=== PATIENT | female | born 1990 | race Caucasian/White ===

== ENCOUNTER 2021-06-13 14:50 | Inpatient (IN) | payer OTHER, SELFPAY ==
[2021-06-13] VITALS (21 sets, daily range): BP systolic 115–145; BP diastolic 69–99; PULSE 64–139; TEMP 36.5–36.8; O2SAT 97–98; BMI 25.0
[2021-06-13 14:58] LABS: Creatinine, Urine (random) < 13.00 mg/dL (NO RANGE EST.); Protein, Urine (Random) < 6.0 mg/dL (<11.9)
[2021-06-13] MEDS: 0.9% Saline Lock 10 ML Syringe IV (15:30)
[2021-06-13 15:57] LABS: Hematocrit 44.2 % (37-47); Hemoglobin 14.7 g/dL (12.0-15.0); Mean Corp Hgb Conc 33.3 g/dL (32-36); Mean Corpuscular Hgb 30.2 pg (27.0-32.0); Mean Corpuscular Volume 90.9 fL (81-99); Mean Platelet Vol. 9.4 fl (6.2-12.0); Platelet Count 222 K/mm3 (150-450); RBC Distribution Width CV 13.2 % (11.6-14.6); RBC Distribution Width SD 43.8 fl (35.1-43.9); Red Blood Count 4.86 M/mm3 (4.2-5.4); White Blood Count 9.1 K/mm3 (4.4-11.0)
[2021-06-13 16:20] LABS: ALB/GLOB Ratio 0.6 RATIO (0.9-2.4); AST(SGOT) 34 U/L (15-37); Alanine Aminotransfer ALT/SGPT 23 U/L (13-56); Albumin, Serum 2.7 g/dL (3.2-5.0); Alkaline Phosphatase 166 U/L (45-117); Anion Gap 10 (5-15); BUN 7 mg/dL (7-18); BUN/Creat Ratio 11.3 RATIO (10-20); Calcium,Total 9.3 mg/dL (8.5-10.1); Chloride 105 mmol/L (98-107); Creatinine, Serum 0.62 mg/dL (0.55-1.02); EST Glomerular Filtration Rate 121 mL/min (>60); Est Glom Filt Rate - Afr Amer 146 mL/min (>60); Estimated Creatinine Clearance 135.06 ml/min; Globulin 4.5 g/dL (2.2-4.2); Glucose 79 mg/dL (74-106); Potassium 3.9 mmol/L (3.5-5.1); Protein, Total 7.2 g/dL (6.4-8.2); Sodium Level 138 mmol/L (136-145); Uric Acid 5.1 mg/dL (2.6-6.0)
--- NOTE | 2021-06-13 16:57 | HP.PCM.OB_ITS ---
HPI - General General Date of Admission: 06/13/21 HPI Narrative GABRIEL GUERRA, is a 30 F who presents at 38w3d by LMP. . uncomplicated till todays visit. BP elevated in office. Sent to labor and delivery for evaluation. BP remained elevated upon triage evaluation and cerv ical exam changed from 3cm to 5cm dilation. No signs of preeclampsia or other complaints. Maternal Data Information LIN Calculator Estimated Delivery Date Method Current WG Current Estimate 06/24/21 Manual 38w 3d PFSH PFSH Home Medications aspirin [Aspir-81] 81 mg PO DAILY 06/13/21 [History Last Taken 06/12/21] calcium 500 mg PO DAILY 06/13/21 [History Last Taken 06/12/21] cholecalciferol (vitamin D3) [Vitamin D3] 50 mcg PO DAILY 06/13/21 [History Last Taken 06/12/21] [id number] [] 1 tab PO DAILY 06/13/21 [History Last Taken 06/12/21] Allergy/AdvReac Type Severity Reaction Status Date / Time No Known Allergies Allergy Verified 06/13/21 15:07 Social History Smoking Status: Never smoker History Elective abortions Hx Para 3 Spontaneous abortions Hx # Term Pregnancies Ectopic pregnancies Hx # Pregnancies Multiple births # of living children NST FHR Rate Baby A Baseline: 155 Variability:: Moderate Accelerations:: 15 x 15 Decelerations:: None FHR Category:: Category I Uterine Activity:: Irregular, every 2-3 ROS Constitutional Constitutional: Reports systems reviewed and no addt'l complaints, except as documented; Denies headache(s) Eyes Eyes: Denies acute decrease in peripheral vision, blurry vision or change in vision ENT HEENT: Reports systems reviewed and no addt'l complaints, except as documented Cardiovascular Cardiovascular: Denies chest pain or dizziness Respiratory/Chest Respiratory/Chest: Denies cough, dyspnea, dyspnea on exertion, shortness of breath at rest or shortness of breath with exertion Gastrointestinal Gastrointestinal: Denies abdominal pain, diarrhea, nausea or vomiting Genitourinary Genitourinary: Denies abdominal discomfort Musculoskeletal Musculoskeletal: Denies limited range of motion Integumentary Integumentary: Reports systems reviewed and no addt'l complaints, except as documented Neurologic Neurologic: Reports systems reviewed and no addt'l complaints, except as documented Psychiatric Psychiatric: Reports systems reviewed and no addt'l complaints, except as documented Endocrine Endocrinology: Reports systems reviewed and no addt'l complaints, except as documented Hematologic/Lymphatic Hematologic/Lymphatic: Reports systems reviewed and no addt'l complaints, except as documented Allergic/Immunologic Allergic/Immunologic: Reports systems reviewed and no addt'l complaints, except as documented Vital Signs Vital Signs Vital Signs: 06/13/21 14:06 06/13/21 14:16 06/13/21 14:26 Temperature 98.1 F Temperature Source Temporal Pulse Rate 96 79 87 Blood Pressure 138/99 H 145/88 H 135/88 H BP Systolic 138 145 135 BP Diastolic 99 88 88 06/13/21 14:36 06/13/21 15:41 Temperature Temperature Source Pulse Rate 88 117 H Blood Pressure 140/90 H 140/91 H BP Systolic 140 140 BP Diastolic 90 91 Weight Weight: 164 lb 9.6 oz Body Mass Index (BMI) 25.0 Physical Exam Const alert and oriented x3 General Appearance: cooperative Orientation / Consciousness: awake, oriented to person, oriented to place and oriented to time Exam Limitations: no limitations HEENT normocephalic Head and Scalp: normal to inspection, normocephalic and atraumatic Face and Sinus: normal facial exam Eyes General Eye: normal appearance of both eyes Neck full ROM Chest Chest: symmetrical chest wall rise Resp normal respiratory effort and normal air movement Auscultation: clear to auscultation bilaterally Cardio regular rate, regular rhythm, S1 normal heart sound, S2 normal heart sound, no murmurs, no rub, no gallops and no clicks GI normal to inspection, nondistended, normoactive bowel sounds and non-tender appearance of the vagina normal Bladder / Kidney Exam: no CVA tenderness Manual OB Exam: estimated gestational size appropriate, presentation cephalic, dilated 6cm, effaced 70%, station -1 and other Back/Spine normal ROM Extremity normal to inspection and full ROM Skin no rashes or lesions noted Neuro oriented x3, CN's II-XII intact bilaterally and moves all extremities Sensorium / Orientation: awake, alert and oriented to person Motor Exam: clonus absent Deep Tendon Reflexes: Rt Patellar (L4): 2+ and Lt Patellar (L4): 2+ Labs Labs Labs: Blood Type A POSITIVE Antibody Screen NEGATIVE Hct 44.2 % (37-47) Hgb 14.7 g/dL (12.0-15.0) GBS negative RPR negative Rubella Immune HBsAG negative GC/CT negative HIV negative A positive, antibody screen negative Assessment & Plan (1) Gestational hypertension: (2) Active labor at term: (3) History of hemorrhage: (4) Varicosities of vulva: PLAN: 1) Admit to labor and delivery 2) Routine labs, Preeclampsia labs 3) IV, saline lock 4) Planning unmedicated 5) AROM clear fluid 6) GBS negative 7) COVID rapid screen, asymptomatic 8) Continuous monitoring 9) collaborative physician and notified of patient status
[2021-06-13] MEDS: Oxytocin 30 units/NS 500 ml 30 UNITS/500 ML IV.SOLN 334 UNITS IV (19:10)
--- NOTE | 2021-06-13 19:28 | EX.PCM.OBRPT ---
Assessment & Plan (1) Vaginal delivery: Maternal Data Information LIN Calculator Estimated Delivery Date Method Current WG Current Estimate 06/24/21 Manual 38w 3d Vaginal Delivery Maternal Presentation Maternal Presentation: Active Labor Operative Information Pre-Operative Diagnosis: active labor, GHTN Post-Operative Diagnosis: Surgery / Procedure Performed: Spontaneous Vaginal Delivery Type of Anesthesia: None Time of Delivery: 19:08 Findings Description of Procedure: Progressed to complete with strong urge to push. Unmedicated. of viable female over intake perineum. head delivered with body forthcoming. Placed on maternal abdomen. APGARS 9,9. Spontaneous cry, mouth and nares suctioned for secretions. Pitocin started for active 3rd stage management. Cord clamped and cut after pulsations ceased. Placenta delivered intact, 3 vessel cord via gee. Perineum inspected and revealed intact. EBL 400ml. Vaginal sweep completed, sponge and instrument count correct. Mom and baby stable. Family bonding well. Planning to breastfeed. notified of delivery. Presentation: Vertex and [place] Amniotic Membrane Rupture Type: Spontaneous Amniotic Fluid Description: Clear Placental Delivery Description: Expressed Placenta Disposition: [facility] Cord Vessel Description: 3 Vessels Cord Entanglement: None Infant A Gender: Female (1 minute): 9 (5 minute): 9 Delayed Cord Clamping: Yes Post Vaginal Delivery Medications Given After Delivery: IV Pitocin Episiotomy Description: None Laceration: None Complication Complications: None
[2021-06-14] VITALS (7 sets, daily range): BP systolic 116–154; BP diastolic 69–92; PULSE 54–88; RESP 16; TEMP 36.2–36.8; O2SAT 97–99
--- NOTE | 2021-06-14 07:14 | PCM.PN.OB ---
Subjective Subjective Doing well per patient and nursing staff. Ambulating and taking PO without difficulty. Voiding and passing flatus. Pain controlled. , services for assistance, nipple pain and using shield. Denies headache, visual changes, chest pain, shortness of breath, leg pain or increased bleeding. Lochia normal. Objective Data Objective Data Vital Signs: Vital Signs Temp Pulse Resp BP Pulse Ox 98.2 F 60 16 141/92 H 99 06/14/21 04:54 06/14/21 04:54 06/14/21 04:54 06/14/21 04:54 06/14/21 04:54 Oxygen Delivery Method Room Air Weight: 164 lb 9.6 oz Body Mass Index (BMI) 25.0 Intake & Output: Intake and Output for Last 24 Hours 06/12/21 06/13/21 06/14/21 23:59 23:59 23:59 Intake Total 500 / 500 Output Total 500 / 500 500 / 500 Balance 0 / 0 -500 / -500 Lab / Micro Data Result Diagrams: 06/13/21 15:25 06/13/21 14:20 Labs: Laboratory Results - last 24 hr 06/13/21 14:20: WBC Cancelled, Corrected WBC Cancelled, RBC Cancelled, Hgb Cancelled, Hct Cancelled, MCV Cancelled, MCH Cancelled, MCHC Cancelled, RDW Std Deviation Cancelled, RDW Coeff of Winsome Cancelled, Plt Count Cancelled, MPV Cancelled, Diff Path Review Cancelled 06/13/21 14:20: Sodium 138, Potassium 3.9, Chloride 105, Carbon Dioxide 23.0, Anion Gap 10, BUN 7, Creatinine 0.62, Estim Creat Clear Calc 135.06, Est GFR (MDRD) Af Amer 146, Est GFR (MDRD) Non-Af 121, BUN/Creatinine Ratio 11.3, Glucose 79, Uric Acid 5.1, Calcium 9.3, Total Bilirubin 0.50, AST 34, ALT 23, Alkaline Phosphatase 166 H, Total Protein 7.2, Albumin 2.7 L, Globulin 4.5 H, Albumin/Globulin Ratio 0.6 L 06/13/21 14:20: U Random Total Protein < 6.0, Urine Creatinine < 13.00, Protein/Creatinin Ratio TNP 06/13/21 14:20: Blood Type A POSITIVE, Antibody Screen NEGATIVE 06/13/21 15:25: WBC 9.1, RBC 4.86, Hgb 14.7, Hct 44.2, MCV 90.9, MCH 30.2, MCHC 33.3, RDW Std Deviation 43.8, RDW Coeff of Winsome 13.2, Plt Count 222, MPV 9.4 ROS Constitutional Constitutional: Reports systems reviewed and no addt'l complaints, except as documented; Denies headache(s) Eyes Eyes: Denies acute decrease in peripheral vision, blurry vision or change in vision ENT HEENT: Reports systems reviewed and no addt'l complaints, except as documented Cardiovascular Cardiovascular: Denies chest pain or dizziness Respiratory/Chest Respiratory/Chest: Denies cough, dyspnea, dyspnea on exertion, shortness of breath at rest or shortness of breath with exertion Gastrointestinal Gastrointestinal: Denies abdominal pain, diarrhea, nausea or vomiting Genitourinary Genitourinary: Denies abdominal discomfort Musculoskeletal Musculoskeletal: Denies limited range of motion Integumentary Integumentary: Reports systems reviewed and no addt'l complaints, except as documented Neurologic Neurologic: Reports systems reviewed and no addt'l complaints, except as documented Psychiatric Psychiatric: Reports systems reviewed and no addt'l complaints, except as documented Endocrine Endocrinology: Reports systems reviewed and no addt'l complaints, except as documented Hematologic/Lymphatic Hematologic/Lymphatic: Reports systems reviewed and no addt'l complaints, except as documented Allergic/Immunologic Allergic/Immunologic: Reports systems reviewed and no addt'l complaints, except as documented Physical Exam Const alert and oriented x3 General Appearance: cooperative Orientation / Consciousness: awake, oriented to person, oriented to place and oriented to time Exam Limitations: no limitations HEENT normocephalic Head and Scalp: normal to inspection, normocephalic and atraumatic Face and Sinus: normal facial exam Eyes General Eye: normal appearance of both eyes Neck full ROM Chest Chest: symmetrical chest wall rise Resp normal respiratory effort and normal air movement Auscultation: clear to auscultation bilaterally Cardio regular rate, regular rhythm, S1 normal heart sound, S2 normal heart sound, no murmurs, no rub, no gallops and no clicks GI normal to inspection, nondistended, normoactive bowel sounds and non-tender appearance of the vagina normal Bladder / Kidney Exam: no CVA tenderness Back/Spine normal ROM Extremity normal to inspection and full ROM Skin no rashes or lesions noted Neuro oriented x3, CN's II-XII intact bilaterally and moves all extremities Sensorium / Orientation: awake, alert and oriented to person Motor Exam: clonus absent Deep Tendon Reflexes: Rt Patellar (L4): 2+ and Lt Patellar (L4): 2+ Assessment & Plan (1) Vaginal delivery: (2) Gestational hypertension: (3) Varicosities of vulva: PLAN: 1) Routine PP care 2) BP mildly elevated, asymptomatic, will monitor and start antihypertensive if indicated. oncoming physician and notified. 3) APNO for nipple discomfort 4) Planning D/C home tomorrow 5) Pain management.
--- NOTE | 2021-06-14 12:41 | NURSING ---
This nurse agrees with vital signs and assessment charted per Milly [employer] student.
[2021-06-15 02:20] VITALS: BP 122/71; PULSE 56; RESP 16; TEMP 36.7; O2SAT 98
--- NOTE | 2021-06-15 08:36 | PCM.PN.OB ---
Subjective Subjective Patient seen at bedside. Feeling good. Ambulating and voiding without difficulty. Denies any headache, vision changes, dizziness, SOB or CP. Breast feeding without support. Objective Data Objective Data Vital Signs: Vital Signs Temp Pulse Resp BP Pulse Ox 98.0 F 56 L 16 122/71 H 98 06/15/21 02:20 06/15/21 02:20 06/15/21 02:20 06/15/21 02:20 06/15/21 02:20 Oxygen Delivery Method Room Air Weight: 164 lb 9.6 oz Body Mass Index (BMI) 25.0 Intake & Output: Intake and Output for Last 24 Hours 06/13/21 06/14/21 06/15/21 23:59 23:59 23:59 Intake Total 500 / 500 Output Total 500 / 500 500 / 500 Balance 0 / 0 -500 / -500 Lab / Micro Data Result Diagrams: 06/13/21 15:25 06/13/21 14:20 ROS Eyes Eyes: Denies blurry vision, change in vision or spots in vision ENT HEENT: Denies dizziness or headache(s) Cardiovascular Cardiovascular: Denies abdominal pain, chest pain or dyspnea Respiratory/Chest Respiratory/Chest: Denies cough, dyspnea, shortness of breath at rest or shortness of breath with exertion Gastrointestinal Gastrointestinal: Denies abdominal pain, diarrhea or vomiting Genitourinary Genitourinary: Denies change in urinary stream, difficulty urinating or dysuria Musculoskeletal Musculoskeletal: Reports none Integumentary Integumentary: Denies rash Neurologic Neurologic: Denies dizziness, headache(s), memory loss or weakness Physical Exam Const alert and no apparent distress General Appearance: cooperative and comfortable Exam Limitations: no limitations HEENT normocephalic Eyes General Eye: normal appearance of both eyes Neck full ROM General: normal visual inspection Chest Chest: symmetrical chest wall rise Resp normal respiratory effort and normal air movement Effort and Inspection: symmetric chest movement Auscultation: clear to auscultation bilaterally Cardio regular rate and regular rhythm GI normal to inspection, nondistended, normoactive bowel sounds Back/Spine normal ROM Extremity full ROM and no calf tenderness General Extremity: normal exam except as noted Skin no rashes or lesions noted Neuro CN's II-XII intact bilaterally Psych mental status grossly normal Assessment & Plan (1) Vaginal delivery: (2) Gestational hypertension: QUALIFIERS: Trimester: unspecified trimester Qualified Code(s): O13.9 - Gestational [-induced] hypertension without significant proteinuria, unspecified trimester (3) Care and examination of lactating mother: PLAN: PPD 2 support- Triple cream ordered today BP remain elevated at times- 135/96 today Asymptomatic Discussed with Dr. Ferro- Start Labetalol 100 mg PO BID D/C home with preeclampsia precautions and follow up in office on Sunday06/20/21 for BP check
--- NOTE | 2021-06-15 09:24 | PCM.DC ---
Discharge Instructions Diet Discharge Diet: No restrictions Activity May resume sexual activity in: 6-8 weeks Weight Bearing Status: Weight bearing as tolerated Dressing / Incision Call your doctor if you observe: Fever of 101 or Higher, Inability to urinate, Using more than 1 pad per hour, Shortness of breath, Chest pain, Calf discomfort and Uncontrolled pain Follow Up Care When: Sunday06/20/21 in office for BP check Test Results: Test results from this visit will be discussed in further detail at your follow-up appointment, if applicable. Discharge Plan Admission Admit Date/Time: 06/13/21 14:50 Primary Reason for Your Visit: Labor and Delivery Attending Provider: Aicha Payton Primary Care Provider: Christin Auguste Discharge Orders/Prescriptions Prescriptions: New labetalol 100 mg Tablet 100 mg PO BID Qty: 60 RF: 1 Continued [id number] 1 mg Tablet 1 tab PO DAILY RF: 0 Discontinued calcium 500 mg Tablet 500 mg PO DAILY RF: 0 aspirin [Aspir-81] 81 mg Tablet,Delayed Release (Dr/Ec) 81 mg PO DAILY RF: 0 cholecalciferol (vitamin D3) [Vitamin D3] 50 mcg (2,000 unit) Tablet 50 mcg PO DAILY RF: 0 Referrals / Follow Up: Christin Auguste PA-C [Primary Care Provider] - Disposition Disposition (needs filled in before D/C Order can be placed): Home, Self Care
[2021-06-15 09:30] VITALS: BP 145/101; PULSE 77; RESP 16; TEMP 36.4
[2021-06-15 10:00] VITALS: BP 146/93; O2SAT 97
[2021-06-15] MEDS: Labetalol 100 MG Tablet PO (10:40)
[2021-06-15 12:24] VITALS: BP 140/90; PULSE 66; RESP 16; TEMP 36.2; O2SAT 97
[2021-06-15 16:23] VITALS: BP 133/88; PULSE 66; RESP 16; TEMP 36.3
--- NOTE | 2021-06-23 16:22 | NURSING ---
no answer on follow up phone call, left voice mail
== END 2021-06-15 17:00 | disposition home or self-care (01) | DRG 807 ==
LOC: WPOUT 14:52 → WP 14:52
PROVIDERS: Admitting Provider Advanced Practice Midwife; PCP Family Medicine; Visit Provider Advanced Practice Midwife
DX: O13.4 Gestational [pregnancy-induced] hypertension without significant proteinuria, complicating childbirth (principal); Z37.0 Single live birth; O87.8 Other venous complications in the puerperium; Z3A.38 38 weeks gestation of pregnancy
CPT/HCPCS: 59025; 59050; 80053; 82570; 84156; 84550; 85027; 86850; 86900; 86901; 99218; A4216; G0378

== ENCOUNTER 2021-06-17 18:50 | Outpatient (CLI) | payer OTHER, SELFPAY ==
[2021-06-17] VITALS (9 sets, daily range): BP systolic 126–163; BP diastolic 81–98; PULSE 58–77; TEMP 36.9; O2SAT 98–99; BMI 22.9
--- NOTE | 2021-06-17 19:33 | NURSING ---
bessa CNM desires to be contacted if 2 BPs are >160 systolic and /or >110 diastolic. recharger aware of first elevated BP.
[2021-06-17 20:55] LABS: Absolute Lymphocyte Count 1.36 X10^3/uL (0.83-4.51); Absolute Neutrophil Count 4.9 X10^3/uL (2.0-7.7); Basophil# 0.04 X10^3/uL; Basophil% 0.6 % (0-1); Eosinophil# 0.13 X10^3/uL; Eosinophils% 1.9 % (0-5); Hematocrit 40.7 % (37-47); Hemoglobin 13.5 g/dL (12.0-15.0); Lymphocyte # 1.36 X10^3/ul (0.83-4.51); Mean Corp Hgb Conc 33.2 g/dL (32-36); Mean Corpuscular Hgb 30.3 pg (27.0-32.0); Mean Corpuscular Volume 91.3 fL (81-99); Mean Platelet Vol. 8.6 fl (6.2-12.0); Monocyte# 0.38 X10^3/uL; Monocyte% 5.6 % (0-10); NRBC Flagged by Analyzer 0 % (0-5); Neutrophil # 4.88 X10^3/uL (2.7-7.7); Neutrophil % 71.8 % (47-70); Platelet Count 274 K/mm3 (150-450); RBC Distribution Width SD 43.2 fl (35.1-43.9); Red Blood Count 4.46 M/mm3 (4.2-5.4); White Blood Count 6.8 K/mm3 (4.4-11.0)
[2021-06-17] MEDS: Labetalol 200 MG Tablet PO (20:56)
[2021-06-17 21:18] LABS: ALB/GLOB Ratio 0.7 RATIO (0.9-2.4); AST(SGOT) 36 U/L (15-37); Alanine Aminotransfer ALT/SGPT 45 U/L (13-56); Albumin, Serum 2.7 g/dL (3.2-5.0); Alkaline Phosphatase 105 U/L (45-117); Anion Gap 5 (5-15); BUN 9 mg/dL (7-18); BUN/Creat Ratio 14.1 RATIO (10-20); Calcium,Total 7.8 mg/dL (8.5-10.1); Chloride 113 mmol/L (98-107); Creatinine, Serum 0.64 mg/dL (0.55-1.02); EST Glomerular Filtration Rate 116 mL/min (>60); Est Glom Filt Rate - Afr Amer 141 mL/min (>60); Estimated Creatinine Clearance 130.84 ml/min; Glucose 130 mg/dL (74-106); Potassium 3.7 mmol/L (3.5-5.1); Protein, Total 6.7 g/dL (6.4-8.2); Sodium Level 142 mmol/L (136-145)
--- NOTE | 2021-07-17 02:46 | PCM.HP.OB ---
HPI - General HPI Narrative GABRIEL GUERRA, is a 30 F who presents at 17 weeks gestational age by US. complicated by Di/Di twin gestation concieved by donor sperm IUI and Clomid . Started with abdominal cramping mid pelvis like menstrual cramps around 1930 this evening. Vaginal spotting has been present on and off throughout the thus far and was similar spotting this evening, no clots or tissue. Pain increased in pelvis, into back and increased intensity. At this time decided to come to Emergency Department for further evaluation. At that time, passed blood clots vaginally and then fetus with umbilical cord still attached, non viable. Placenta undelivered. Patient seen in emergency department for clamping of umbilical cor Maternal Data Information LIN Calculator Estimated Delivery Date Method Current WG Current Estimate 06/24/21 Manual 43w 2d PFSH PFS Medical History (Updated 06/23/21 @ 00:01 by Background Daemon) Active labor at term Care and examination of lactating mother Gestational HTN Gestational hypertension History of hemorrhage Pre-eclampsia Superficial varicosities Vaginal delivery Varicosities of vulva Home Medications [id number] 1 tab PO DAILY 06/13/21 [History Last Taken 06/18/21] calcium 1,000 mg PO DAILY 06/18/21 [History Last Taken 06/18/21] cholecalciferol (vitamin D3) [Vitamin D3] 50 mcg PO DAILY 06/18/21 [History Last Taken Unknown] omega-3 fatty acids 1,000 mg PO DAILY 06/18/21 [History Last Taken Unknown] hydralazine 5 mg PO TID #30 tab 06/20/21 [Rx Last Taken Unknown] nifedipine 60 mg PO DAILY #1 tab 06/22/21 [Rx Last Taken Unknown] Allergy/AdvReac Type Severity Reaction Status Date / Time No Known Allergies Allergy Verified 06/18/21 19:41 Social History Smoking Status: Never smoker History Elective abortions Hx Para 3 Spontaneous abortions Hx # Term Pregnancies Ectopic pregnancies Hx # Pregnancies Multiple births # of living children Vital Signs Vital Signs Vital Signs: Weight Weight: 151 lb Body Mass Index (BMI) 22.9 Labs Labs Labs: Blood Type A POSITIVE Antibody Screen NEGATIVE Hct 47.8 % (37-47) H Hgb 15.8 g/dL (12.0-15.0) H Rhogam given: No
--- NOTE | 2021-07-28 18:13 | OB.TRI.HP_ITS ---
HPI - General HPI Narrative GABRIEL GUERRA, is a 30 F who presents 4 days with elevated BP at home. BP at home in the 160s systolic. Denies any headache, visual changes, chest pain or other concerns. . Maternal Data Information LIN Calculator Estimated Delivery Date Method Current WG Current Estimate 06/24/21 Manual 44w 6d Gestational age: Delivered. Gestational age not accurate. [facility] Medical History (Updated 07/28/21 @ 18:20 by Aicha Payton CNM) Active labor at term Care and examination of lactating mother Gestational HTN Gestational hypertension History of hemorrhage Pre-eclampsia Superficial varicosities Vaginal delivery Varicosities of vulva Home Medications [id number] 1 tab PO DAILY 06/13/21 [History Last Taken 06/18/21] calcium 1,000 mg PO DAILY 06/18/21 [History Last Taken 06/18/21] cholecalciferol (vitamin D3) [Vitamin D3] 50 mcg PO DAILY 06/18/21 [History Last Taken Unknown] omega-3 fatty acids 1,000 mg PO DAILY 06/18/21 [History Last Taken Unknown] hydralazine 5 mg PO TID #30 tab 06/20/21 [Rx Last Taken Unknown] nifedipine 60 mg PO DAILY #1 tab 06/22/21 [Rx Last Taken Unknown] Allergy/AdvReac Type Severity Reaction Status Date / Time No Known Allergies Allergy Verified 06/18/21 19:41 Social History Smoking Status: Never smoker History Elective abortions Hx Para 3 Spontaneous abortions Hx # Term Pregnancies Ectopic pregnancies Hx # Pregnancies Multiple births # of living children Assessment & Plan (1) Elevated blood pressure reading: (2) examination following vaginal delivery: PLAN: 1) BP stable and mild range, no signs of preeclampsia at this time 2) Labs normal and stable. 3) Reviewed preeclampsia symptoms and when to call. If BP increased 140/90 or higher to call. 4) Consulted collaborative physician and agrees with plan. OK to discharge home at this time.
== END 2021-06-17 23:59 | disposition home or self-care (01) ==
LOC: WPOUT 18:56 → WP 18:57
PROVIDERS: PCP Family Medicine; Visit Provider Advanced Practice Midwife
DX: O13.5 Gestational [pregnancy-induced] hypertension without significant proteinuria, complicating the puerperium (principal)
CPT/HCPCS: 36415; 80053; 85025; 99218; G0378

== ENCOUNTER 2021-06-18 18:15 | Inpatient (IN) | payer OTHER, SELFPAY ==
[2021-06-18] VITALS (35 sets, daily range): BP systolic 110–180; BP diastolic 61–99; PULSE 50–87; RESP 14–18; TEMP 36.8–37.4; O2SAT 96–100; BMI 22.6
[2021-06-18] MEDS: hydrALAZINE 20 MG/ML Vial 5 MG IV (18:28)
[2021-06-18] MEDS: 0.9 % NaCl (Sterile) Posiflush 10 mL IV ×2 (18:32→18:40)
[2021-06-18] MEDS: Magnesium Sulfate 4gm/100mL 4 GM/100 ML IV.SOLN. IV (18:33)
[2021-06-18 18:38] LABS: Hematocrit 46.3 % (37-47); Hemoglobin 15.7 g/dL (12.0-15.0); Mean Corp Hgb Conc 33.9 g/dL (32-36); Mean Corpuscular Hgb 30.6 pg (27.0-32.0); Mean Corpuscular Volume 90.3 fL (81-99); Mean Platelet Vol. 8.7 fl (6.2-12.0); Platelet Count 345 K/mm3 (150-450); RBC Distribution Width CV 13.1 % (11.6-14.6); RBC Distribution Width SD 43.8 fl (35.1-43.9); Red Blood Count 5.13 M/mm3 (4.2-5.4)
[2021-06-18] MEDS: Lactated Ringers 500 ML IV.SOLN. IV (18:49)
[2021-06-18] MEDS: Magnesium Sulfate 4gm/100mL 2 GM/50 ML IV.SOLN. IV (18:53)
--- NOTE | 2021-06-18 18:55 | NURSING ---
1900-Mag sulfate not scanning in the computer. Bolus dose verified with second nurse before administering
[2021-06-18] MEDS: Magnesium Sulfate 20 GM/500 ML BAG IV (19:08)
[2021-06-18 19:29] LABS: ALB/GLOB Ratio 0.7 RATIO (0.9-2.4); AST(SGOT) 32 U/L (15-37); Alanine Aminotransfer ALT/SGPT 46 U/L (13-56); Albumin, Serum 3.2 g/dL (3.2-5.0); Alkaline Phosphatase 114 U/L (45-117); Anion Gap 5 (5-15); BUN 13 mg/dL (7-18); BUN/Creat Ratio 19.3 RATIO (10-20); Calcium,Total 10.8 mg/dL (8.5-10.1); Chloride 107 mmol/L (98-107); Creatinine, Serum 0.68 mg/dL (0.55-1.02); EST Glomerular Filtration Rate 109 mL/min (>60); Est Glom Filt Rate - Afr Amer 132 mL/min (>60); Estimated Creatinine Clearance 123.14 ml/min; Globulin 4.4 g/dL (2.2-4.2); Glucose 88 mg/dL (74-106); Protein, Total 7.6 g/dL (6.4-8.2); Sodium Level 140 mmol/L (136-145)
--- NOTE | 2021-06-18 19:40 | NURSING ---
bambi tag number [id number] placed on pt's baby and activated by this RN, verified with Leonora Avendaño RN
[2021-06-18] MEDS: hydrALAZINE 10 MG Tablet PO (20:09)
[2021-06-19] VITALS (40 sets, daily range): BP systolic 98–143; BP diastolic 62–81; PULSE 62–116; RESP 12–20; TEMP 36.1–37.1; O2SAT 83–99
[2021-06-19] MEDS: hydrALAZINE 10 MG Tablet PO (00:33)
[2021-06-19] MEDS: Magnesium Sulfate 20 GM/500 ML BAG IV ×2 (05:13→14:22)
--- NOTE | 2021-06-19 09:37 | PCM.HP.OB ---
HPI - General General Date of Admission: 06/18/21 HPI Narrative GABRIEL GUERRA, is a 30 F who presents for elevated blood pressure day 5. Presented with headache and not feeling well and systolic blood pressure in 180s at home. Presented to labor and delivery yesterday with elevated blood pressure but remained mild with normal labs and discharged home with Labetalol 200mg PO TID. Blood pressure did not improved and returned today. Maternal Data Information LIN Calculator Estimated Delivery Date Method Current WG Current Estimate 06/24/21 Manual 39w 2d [facility] Medical History (Updated 06/18/21 @ 20:19 by Reina Wellington) Gestational HTN Pre-eclampsia Superficial varicosities Home Medications [id number] 1 tab PO DAILY 06/13/21 [History Last Taken 06/18/21] labetalol 200 mg PO BID 06/17/21 [History Last Taken 06/18/21 09:00] calcium 1,000 mg PO DAILY 06/18/21 [History Last Taken 06/18/21] cholecalciferol (vitamin D3) [Vitamin D3] 50 mcg PO DAILY 06/18/21 [History Last Taken Unknown] omega-3 fatty acids [[place] 3] 1,000 mg PO DAILY 06/18/21 [History Last Taken Unknown] Allergy/AdvReac Type Severity Reaction Status Date / Time No Known Allergies Allergy Verified 06/18/21 19:41 Social History Smoking Status: Never smoker History Elective abortions Hx Para 3 Spontaneous abortions Hx # Term Pregnancies Ectopic pregnancies Hx # Pregnancies Multiple births # of living children ROS ROS Narrative Feeling foggy today. No further headache. Constitutional Constitutional: Reports systems reviewed and no addt'l complaints, except as documented Eyes Eyes: Denies acute decrease in peripheral vision, blurry vision or change in vision ENT HEENT: Reports systems reviewed and no addt'l complaints, except as documented Cardiovascular Cardiovascular: Denies chest pain or dizziness Respiratory/Chest Respiratory/Chest: Denies cough, dyspnea, dyspnea on exertion, shortness of breath at rest or shortness of breath with exertion Gastrointestinal Gastrointestinal: Denies abdominal pain, diarrhea, nausea or vomiting Genitourinary Genitourinary: Denies abdominal discomfort Musculoskeletal Musculoskeletal: Denies limited range of motion Integumentary Integumentary: Reports systems reviewed and no addt'l complaints, except as documented Neurologic Neurologic: Reports systems reviewed and no addt'l complaints, except as documented Psychiatric Psychiatric: Reports systems reviewed and no addt'l complaints, except as documented Endocrine Endocrinology: Reports systems reviewed and no addt'l complaints, except as documented Hematologic/Lymphatic Hematologic/Lymphatic: Reports systems reviewed and no addt'l complaints, except as documented Allergic/Immunologic Allergic/Immunologic: Reports systems reviewed and no addt'l complaints, except as documented Vital Signs Vital Signs Vital Signs: 06/18/21 17:53 06/18/21 17:57 06/18/21 18:07 Temperature 98.4 F Temperature Source Temporal Pulse Rate 51 L 50 L Respiratory Rate Respiratory Effort Respiratory Depth Respiratory Pattern Blood Pressure 180/92 H 179/99 H Blood Pressure Mean BP Systolic 180 179 BP Diastolic 92 99 Blood Pressure Source Blood Pressure Position Blood Pressure Location Pulse Ox 100 Oxygen Delivery Method 06/18/21 18:22 06/18/21 18:28 06/18/21 18:33 Temperature Temperature Source Pulse Rate 51 L 50 L 64 Respiratory Rate 14 Respiratory Effort Normal Respiratory Depth Respiratory Pattern Blood Pressure 170/96 H 170/96 H Blood Pressure Mean BP Systolic 170 BP Diastolic 96 Blood Pressure Source Blood Pressure Position Blood Pressure Location Pulse Ox 99 Oxygen Delivery Method Room Air 06/18/21 18:41 06/18/21 18:46 06/18/21 18:47 Temperature Temperature Source Pulse Rate 65 70 67 Respiratory Rate 14 Respiratory Effort Normal Respiratory Depth Respiratory Pattern Blood Pressure 165/90 H 141/80 H 141/80 H Blood Pressure Mean 100 BP Systolic 165 141 BP Diastolic 90 80 Blood Pressure Source Monitor Blood Pressure Position Blood Pressure Location Pulse Ox 99 99 Oxygen Delivery Method Room Air 06/18/21 18:51 06/18/21 18:56 06/18/21 19:01 Temperature Temperature Source Pulse Rate 75 75 Respiratory Rate Respiratory Effort Respiratory Depth Respiratory Pattern Blood Pressure Blood Pressure Mean BP Systolic BP Diastolic Blood Pressure Source Blood Pressure Position Blood Pressure Location Pulse Ox 98 98 98 Oxygen Delivery Method 06/18/21 19:02 06/18/21 19:06 06/18/21 19:11 Temperature Temperature Source Pulse Rate 75 82 83 Respiratory Rate 16 Respiratory Effort Normal Respiratory Depth Normal Respiratory Pattern Normal Blood Pressure 135/82 H Blood Pressure Mean 99 BP Systolic 135 BP Diastolic 82 Blood Pressure Source Monitor Blood Pressure Position Blood Pressure Location Pulse Ox 98 99 98 Oxygen Delivery Method Room Air 06/18/21 19:14 06/18/21 19:16 06/18/21 19:21 Temperature Temperature Source Pulse Rate 68 84 83 Respiratory Rate 14 Respiratory Effort Normal Respiratory Depth Normal Respiratory Pattern Normal Blood Pressure 130/78 H Blood Pressure Mean 95 BP Systolic 130 BP Diastolic 78 Blood Pressure Source Monitor Blood Pressure Position Blood Pressure Location Pulse Ox 98 98 100 Oxygen Delivery Method Room Air 06/18/21 19:24 06/18/21 19:26 06/18/21 19:31 Temperature Temperature Source Pulse Rate 82 80 70 Respiratory Rate Respiratory Effort Respiratory Depth Respiratory Pattern Blood Pressure 145/75 H Blood Pressure Mean BP Systolic 145 BP Diastolic 75 Blood Pressure Source Blood Pressure Position Blood Pressure Location Pulse Ox 100 100 Oxygen Delivery Method 06/18/21 19:34 06/18/21 19:36 06/18/21 19:41 Temperature Temperature Source Pulse Rate 82 82 70 Respiratory Rate Respiratory Effort Respiratory Depth Respiratory Pattern Blood Pressure 134/72 H Blood Pressure Mean BP Systolic 134 BP Diastolic 72 Blood Pressure Source Blood Pressure Position Blood Pressure Location Pulse Ox 100 99 Oxygen Delivery Method 06/18/21 19:44 06/18/21 20:00 06/18/21 20:09 Temperature 98.3 F Temperature Source Temporal Pulse Rate 74 71 71 Respiratory Rate 18 Respiratory Effort Normal Non-Labored Respiratory Depth Normal Respiratory Pattern Normal Blood Pressure 124/70 H 123/69 H 123/69 H Blood Pressure Mean 88 BP Systolic 124 123 BP Diastolic 70 69 Blood Pressure Source Monitor Blood Pressure Position Sitting Blood Pressure Location Right Arm Pulse Ox 99 Oxygen Delivery Method Room Air 06/18/21 20:15 06/18/21 20:30 06/18/21 20:45 Temperature 98.2 F Temperature Source Temporal Pulse Rate 76 71 71 Respiratory Rate 16 Respiratory Effort Respiratory Depth Respiratory Pattern Blood Pressure 131/74 H 118/69 128/73 H Blood Pressure Mean 93 BP Systolic 131 118 128 BP Diastolic 74 69 73 Blood Pressure Source Monitor Blood Pressure Position Sitting Blood Pressure Location Right Arm Pulse Ox 97 Oxygen Delivery Method 06/18/21 21:15 06/18/21 21:16 06/18/21 21:47 Temperature 99.3 F H Temperature Source Temporal Pulse Rate 79 87 Respiratory Rate 18 Respiratory Effort Normal Non-Labored Respiratory Depth Normal Respiratory Pattern Normal Blood Pressure 116/71 114/70 Blood Pressure Mean 86 BP Systolic 116 114 BP Diastolic 71 70 Blood Pressure Source Monitor Blood Pressure Position Semi-Fowlers Blood Pressure Location Right Arm Pulse Ox 97 98 Oxygen Delivery Method Room Air 06/18/21 22:25 06/18/21 23:28 06/19/21 00:33 Temperature 98.7 F 98.4 F Temperature Source Temporal Temporal Pulse Rate 84 69 65 Respiratory Rate 16 18 Respiratory Effort Respiratory Depth Respiratory Pattern Blood Pressure 110/61 114/70 105/62 Blood Pressure Mean 77 84 76 BP Systolic 110 114 BP Diastolic 61 70 Blood Pressure Source Monitor Monitor Monitor Blood Pressure Position Sitting Semi-Fowlers Semi-Fowlers Blood Pressure Location Right Arm Right Arm Right Arm Pulse Ox 96 97 96 Oxygen Delivery Method Room Air Room Air Room Air 06/19/21 00:34 06/19/21 01:32 06/19/21 01:33 Temperature 98.8 F Temperature Source Temporal Pulse Rate 62 68 75 Respiratory Rate 16 Respiratory Effort Normal Non-Labored Respiratory Depth Normal Respiratory Pattern Normal Blood Pressure 105/62 103/66 Blood Pressure Mean 78 BP Systolic 105 BP Diastolic 62 Blood Pressure Source Monitor Blood Pressure Position Sitting Blood Pressure Location Right Arm Pulse Ox 96 97 Oxygen Delivery Method Room Air 06/19/21 01:34 06/19/21 02:35 06/19/21 03:36 Temperature 98.6 F Temperature Source Temporal Pulse Rate 68 75 70 Respiratory Rate 18 18 Respiratory Effort Normal Non-Labored Respiratory Depth Normal Respiratory Pattern Normal Blood Pressure 103/66 98/64 104/65 Blood Pressure Mean 75 78 BP Systolic 103 98 104 BP Diastolic 66 64 65 Blood Pressure Source Monitor Monitor Blood Pressure Position Semi-Fowlers Semi-Fowlers Blood Pressure Location Right Arm Right Arm Pulse Ox 97 96 Oxygen Delivery Method Room Air Room Air 06/19/21 04:31 06/19/21 04:32 06/19/21 05:15 Temperature 98.2 F Temperature Source Temporal Pulse Rate 85 75 Respiratory Rate 20 H 18 Respiratory Effort Normal Non-Labored Respiratory Depth Normal Respiratory Pattern Normal Blood Pressure 115/69 118/72 Blood Pressure Mean 84 87 BP Systolic 115 118 BP Diastolic 69 72 Blood Pressure Source Monitor Monitor Blood Pressure Position Sitting Semi-Fowlers Blood Pressure Location Right Arm Right Arm Pulse Ox 98 97 98 Oxygen Delivery Method Room Air Room Air 06/19/21 06:19 06/19/21 06:20 06/19/21 07:20 Temperature 98 F Temperature Source Temporal Pulse Rate 64 69 68 Respiratory Rate 16 14 Respiratory Effort Normal Respiratory Depth Normal Respiratory Pattern Normal Blood Pressure 109/68 105/66 105/72 Blood Pressure Mean 81 83 BP Systolic 105 BP Diastolic 66 Blood Pressure Source Monitor Monitor Blood Pressure Position Semi-Fowlers Semi-Fowlers Blood Pressure Location Right Arm Right Arm Pulse Ox 98 99 Oxygen Delivery Method Room Air Room Air 06/19/21 07:22 06/19/21 08:20 06/19/21 08:31 Temperature Temperature Source Pulse Rate 70 70 77 Respiratory Rate 12 Respiratory Effort Respiratory Depth Respiratory Pattern Blood Pressure 105/72 112/71 Blood Pressure Mean 84 BP Systolic 105 BP Diastolic 72 Blood Pressure Source Monitor Blood Pressure Position Supine Blood Pressure Location Right Arm Pulse Ox 98 98 98 Oxygen Delivery Method Room Air 06/19/21 08:32 Temperature Temperature Source Pulse Rate 71 Respiratory Rate Respiratory Effort Respiratory Depth Respiratory Pattern Blood Pressure 112/71 Blood Pressure Mean BP Systolic 112 BP Diastolic 71 Blood Pressure Source Blood Pressure Position Blood Pressure Location Pulse Ox Oxygen Delivery Method Weight Weight: 148 lb 12.992 oz Body Mass Index (BMI) 22.6 Physical Exam Const alert and oriented x3 General Appearance: cooperative Orientation / Consciousness: awake, oriented to person, oriented to place and oriented to time Exam Limitations: no limitations HEENT normocephalic Head and Scalp: normal to inspection, normocephalic and atraumatic Face and Sinus: normal facial exam Eyes General Eye: normal appearance of both eyes Neck full ROM Chest Chest: symmetrical chest wall rise Resp normal respiratory effort and normal air movement Auscultation: clear to auscultation bilaterally Cardio regular rate, regular rhythm, S1 normal heart sound, S2 normal heart sound, no murmurs, no rub, no gallops and no clicks GI normal to inspection, nondistended, normoactive bowel sounds and non-tender appearance of the vagina normal Bladder / Kidney Exam: no CVA tenderness Back/Spine normal ROM Extremity normal to inspection and full ROM Extremity Narrative: +2/4 bilateral patellar. No clonus. No edema Skin no rashes or lesions noted Neuro oriented x3, CN's II-XII intact bilaterally and moves all extremities Sensorium / Orientation: awake, alert and oriented to person Motor Exam: clonus absent Deep Tendon Reflexes: Rt Patellar (L4): 2+ and Lt Patellar (L4): 2+ Labs Labs Labs: Blood Type A POSITIVE Antibody Screen NEGATIVE Hct 46.3 % (37-47) Hgb 15.7 g/dL (12.0-15.0) H Rhogam given: No Assessment & Plan (1) Gestational hypertension: QUALIFIERS: Trimester: unspecified trimester Qualified Code(s): O13.9 - Gestational [-induced] hypertension without significant proteinuria, unspecified trimester PLAN: 1) Admit for hypertension 2) Hypertensive protocol upon admission. 3) Magnesium infusion, will discontinue at 24hr at 1833pm 4) Will continue to monitor BP, dose held this morning due to low BP.Will reassed prior to next dose.Medication adjusted by this am. Hydralazine 5mg PO TID. 5) Labs normal, no signs of preeclampsia 6) Will plan for D/C home tomorrow 7) Dr. Peralta for comanagement and consulted. Notified of patient plan and assessment.
--- NOTE | 2021-06-19 14:23 | NURSING ---
Magnesium bag change with Zara GRANT.
--- NOTE | 2021-06-19 17:52 | PCM.PN.OB ---
Subjective Subjective Patient has mild frontal BARRON, feels vision is a little fuzzy from the magensium. No other c/o. Average lochia. Denies epigastric pain. going well. Objective Data Objective Data Vital Signs: Vital Signs Temp Pulse Resp BP Pulse Ox 97.0 F L 74 16 119/74 99 06/19/21 16:18 06/19/21 17:17 06/19/21 17:17 06/19/21 17:17 06/19/21 17:17 Oxygen Delivery Method Room Air Weight: 67.5 kg Body Mass Index (BMI) 22.6 Intake & Output: Intake and Output for Last 24 Hours 06/17/21 06/18/21 06/19/21 23:59 23:59 23:59 Intake Total 750 / 750 2982.50 / 2982.50 Output Total 1100 / 1100 2650 / 2650 Balance -350 / -350 332.50 / 332.50 Lab / Micro Data Result Diagrams: 06/18/21 18:15 06/18/21 18:15 Labs: Laboratory Results - last 24 hr 06/18/21 18:15: WBC 9.0, RBC 5.13, Hgb 15.7 H, Hct 46.3, MCV 90.3, MCH 30.6, MCHC 33.9, RDW Std Deviation 43.8, RDW Coeff of [place]ome 13.1, Plt Count 345, MPV 8.7 06/18/21 18:15: Sodium 140, Potassium 4.0, Chloride 107, Carbon Dioxide 28.0, Anion Gap 5, BUN 13, Creatinine 0.68, Estim Creat Clear Calc 123.14, Est GFR (MDRD) Af Amer 132, Est GFR (MDRD) Non-Af 109, BUN/Creatinine Ratio 19.3, Glucose 88, Calcium 10.8 H, Total Bilirubin 0.40, AST 32, ALT 46, Alkaline Phosphatase 114, Total Protein 7.6, Albumin 3.2, Globulin 4.4 H, Albumin/Globulin Ratio 0.7 L Micro: Microbiology 06/18/21 18:25 Nasal Secretion SARS-CoV-2 Antigen (Rapid) - Final Physical Exam Narrative 2+ DTRS, no clonus. Trace edema. Assessment & Plan (1) Severe pre-eclampsia, : PLAN: PP preeclampsia, bp in severe range upon admission. Now normal. Has not received antihypertensive since approx 2 am. Will monitor BP off magnesium and as she is up and ambulating and determine if needs to go home on medication. She is the and doing well and has no other concerns. Case discussed with Abraham Payton CNM and agree w/ her H&P.
--- NOTE | 2021-06-19 21:52 | NURSING ---
Pt. reports feeling mild twitching occasionally in her left arm. Reflexes assessment and are 3+ bilaterally in arms and legs. No clonus noted. Lungs sounds CTA and pt. denies headache, dizziness, or nausea.
[2021-06-19] MEDS: hydrALAZINE 10 MG Tablet 5 MG PO (22:01)
[2021-06-20] VITALS (27 sets, daily range): BP systolic 116–178; BP diastolic 73–104; PULSE 61–105; RESP 16–18; TEMP 36.8–37.2; O2SAT 96–97
[2021-06-20] MEDS: hydrALAZINE 10 MG Tablet 5 MG PO ×2 (05:42→14:06)
--- NOTE | 2021-06-20 13:24 | PCM.PN.OB ---
Subjective Subjective Patient is doing well. She feels well. Denies headache or vision changes. Denies lightheadedness or dizziness. Ambulating without difficulty. She is sitting in the chair nursing without complaints. She desires to go home. Objective Data Objective Data Vital Signs: Vital Signs Temp Pulse Resp BP Pulse Ox 98.3 F 81 16 126/81 H 96 06/20/21 08:00 06/20/21 10:48 06/20/21 08:00 06/20/21 10:48 06/20/21 05:42 Oxygen Delivery Method Room Air Weight: 148 lb 12.992 oz Body Mass Index (BMI) 22.6 Intake & Output: Intake and Output for Last 24 Hours 06/18/21 06/19/21 06/20/21 23:59 23:59 23:59 Intake Total 750 / 750 2982.50 / 2982.50 Output Total 1100 / 1100 2650 / 2650 Balance -350 / -350 332.50 / 332.50 Lab / Micro Data Result Diagrams: 06/18/21 18:15 06/18/21 18:15 Micro: Microbiology 06/18/21 18:25 Nasal Secretion SARS-CoV-2 Antigen (Rapid) - Final Physical Exam Const alert and no apparent distress General Appearance: comfortable Assessment & Plan (1) Severe pre-eclampsia, : PLAN: - BP's have been well controlled on Hydralazine. Off mag gtt. No symptoms and doing well. Continue to monitor BP today and likely discharge home later today. Discussed checking BP at home with patient and reasons to call. She will keep a BP log. To come into the office in 2 days for BP check. (2) Gestational hypertension: QUALIFIERS: Trimester: unspecified trimester Qualified Code(s): O13.9 - Gestational [-induced] hypertension without significant proteinuria, unspecified trimester (3) Vaginal delivery: (4) Care and examination of lactating mother:
--- NOTE | 2021-06-20 13:26 | DS.PCM_ITS ---
Providers Date of Admission: 06/18/21 Primary Care Physician: Christin Auguste PA-C Reason For Visit: POST PRE-E Diagnosis Discharge Diagnosis (1) Severe pre-eclampsia, : Status: Acute Code(s): O14.15 - Severe pre-eclampsia, complicating the puerperium (2) Gestational hypertension: Status: Acute Code(s): O13.9 - Gestational [-induced] hypertension without significant proteinuria, unspecified trimester Qualifiers: Trimester: unspecified trimester Qualified Code(s): O13.9 - Gestational [-induced] hypertension without significant proteinuria, unspecified trimester (3) Vaginal delivery: Status: Acute Code(s): O80 - Encounter for full-term uncomplicated delivery (4) Care and examination of lactating mother: Status: Acute Code(s): Z39.1 - Encounter for care and examination of lactating mother Medications at Discharge Home Medications [id number] 1 tab PO DAILY 06/13/21 labetalol 200 mg PO BID 06/17/21 calcium 1,000 mg PO DAILY 06/18/21 cholecalciferol (vitamin D3) [Vitamin D3] 50 mcg PO DAILY 06/18/21 omega-3 fatty acids [[place] 3] 1,000 mg PO DAILY 06/18/21 Weight / BMI Weight Weight: 148 lb 12.992 oz Body Mass Index (BMI) 22.6 ABG / Lab / Microbiology Data Result Diagrams: 06/18/21 18:15 06/18/21 18:15 Microbiology: Microbiology 06/18/21 18:25 Nasal Secretion SARS-CoV-2 Antigen (Rapid) - Final Discharge Plan Admission Admit Date/Time: 06/18/21 18:15 Attending Provider: Aicha Payton Primary Care Provider: Christin Auguste Discharge Orders/Prescriptions Prescriptions: No Action [id number]-[id number] 1 mg Tablet 1 tab PO DAILY RF: 0 labetalol 100 mg tablet 200 mg PO BID RF: 0 calcium 500 mg Tablet 1,000 mg PO DAILY RF: 0 [place] 3 Capsule 1,000 mg PO DAILY RF: 0 cholecalciferol (vitamin D3) [Vitamin D3] 50 mcg (2,000 unit) Tablet 50 mcg PO DAILY RF: 0
--- NOTE | 2021-06-20 13:26 | PCM.DC ---
Discharge Instructions Diet Discharge Diet: No restrictions Activity May resume sexual activity in: 6-8 weeks Weight Bearing Status: Weight bearing as tolerated Additional Activity Instructions:: - Pelvic rest for 6 weeks - Check blood pressure at home before medication and 1 hour after, and keep a blood pressure log - Check blood pressure if lightheaded or dizzy - Check blood pressure if severe headache Follow Up Care When: This week for a blood pressure check Test Results: Test results from this visit will be discussed in further detail at your follow-up appointment, if applicable. Discharge Plan Admission Admit Date/Time: 06/18/21 18:15 Primary Reason for Your Visit: pre eclampsia Attending Provider: Aicha Payton Primary Care Provider: Christin Auguste Instructions Patient Instructions: Understanding Preeclampsia Discharge Orders/Prescriptions Prescriptions: New hydralazine 10 mg tablet 5 mg PO TID Qty: 30 RF: 0 Continued [id number]-[id number]-[id number]-FA 1 mg Tablet 1 tab PO DAILY RF: 0 calcium 500 mg Tablet 1,000 mg PO DAILY RF: 0 omega-3 fatty acids Capsule 1,000 mg PO DAILY RF: 0 cholecalciferol (vitamin D3) [Vitamin D3] 50 mcg (2,000 unit) Tablet 50 mcg PO DAILY RF: 0 Discontinued labetalol 100 mg tablet 200 mg PO BID RF: 0 Referrals / Follow Up: Christin Auguste PA-C [Primary Care Provider] - Disposition Disposition (needs filled in before D/C Order can be placed): Home, Self Care
--- NOTE | 2021-06-20 16:34 | CHAPLAIN ---
Type of Pastoral Visit _x__ Initial Visit ___ Follow-up Visit ___ On-call Visit ___ General Patient Visit ___ Spiritual Assessment ___ Family Conference ___ Bereavement ___ Rapid Response ___ Code Blue ___ Other (describe below) Pastoral Care Referral From ___ Patient ___ Family ___ Nurse ___ Physician ___ Rating Clerk ___ Sanitary Aide _x__ Other (describe below) Sacrament/Intervention _x__ Active listening ___ Anointing ___ Confucianist ___ Bereavement ___ Communion ___ Quynh exploration ___ ___ Life review ___ Prayer ___ Reconciliation ___ Sacrament of Sick ___ Supportive presence ___ Wedding ___ Other (describe below) Pastoral Comments patient and spouse in the room; pt was not aware of request for support but received the offer and a brief visit
[2021-06-20] MEDS: NIFEdipine 10 MG Capsule PO (16:43)
[2021-06-20] MEDS: NIFEdipine 10 MG Capsule 20 MG PO (17:25)
[2021-06-20] MEDS: 0.9 % NaCl (Sterile) Posiflush 10 mL IV (17:27)
--- NOTE | 2021-06-20 17:35 | NURSING ---
Dr. Peralta notified of BP results throughout the day. Results before and after Hydralazine reported.
[2021-06-20] MEDS: NIFEdipine 30 MG Tablet PO (20:11)
[2021-06-21] VITALS (47 sets, daily range): BP systolic 125–171; BP diastolic 70–104; PULSE 64–104; RESP 16–18; TEMP 36.6–37.3; O2SAT 96–98
--- NOTE | 2021-06-21 08:39 | PN.OBGYN_ITS ---
Subjective Subjective Patient seen at bedside. Tearful throughout visit. Stated feeling anxious due to blood pressures not decreasing and she had plans to be discharged home yesterday. Concerned about other children at home. Current has appointment today at [facility] for US of head due to enlarged fontanelle. Patient denies any headaches, vision changes, SOB, CP or RUQ pain. Having nausea but thinks it is due to not eating much. Discussed PP depression /anxiety with patient and option of starting SSRI. Patient declines at this time. Stated she feels like she will be fine once discharged home. Objective Data Objective Data Vital Signs: Vital Signs Temp Pulse Resp BP Pulse Ox 99.1 F 85 16 140/86 H 96 06/21/21 07:39 06/21/21 07:39 06/21/21 07:39 06/21/21 07:39 06/21/21 07:39 Oxygen Delivery Method Room Air Weight: 148 lb 12.992 oz Body Mass Index (BMI) 22.6 Intake & Output: Intake and Output for Last 24 Hours 06/19/21 06/20/21 06/21/21 23:59 23:59 23:59 Intake Total 2982.50 / 2982.50 Output Total 2650 / 2650 Balance 332.50 / 332.50 Lab / Micro Data Result Diagrams: 06/21/21 11:00 06/21/21 11:00 Micro: Microbiology 06/18/21 18:25 Nasal Secretion SARS-CoV-2 Antigen (Rapid) - Final ROS Eyes Eyes: Denies blurry vision, change in vision or spots in vision ENT HEENT: Denies dizziness or headache(s) Cardiovascular Cardiovascular: Denies abdominal pain, chest pain or dyspnea Respiratory/Chest Respiratory/Chest: Denies cough, dyspnea, shortness of breath at rest or shortness of breath with exertion Gastrointestinal Gastrointestinal: Denies abdominal pain, diarrhea or vomiting Genitourinary Genitourinary: Denies change in urinary stream, difficulty urinating or dysuria Musculoskeletal Musculoskeletal: Reports none Integumentary Integumentary: Denies rash Neurologic Neurologic: Denies dizziness, headache(s), memory loss or weakness Physical Exam Const alert and no apparent distress General Appearance: cooperative and comfortable Exam Limitations: no limitations HEENT normocephalic Eyes General Eye: normal appearance of both eyes Neck full ROM General: normal visual inspection Chest Chest: symmetrical chest wall rise Resp normal respiratory effort and normal air movement Effort and Inspection: symmetric chest movement Auscultation: clear to auscultation bilaterally Cardio regular rate and regular rhythm GI normal to inspection, nondistended, normoactive bowel sounds Back/Spine normal ROM Extremity full ROM and no calf tenderness General Extremity: normal exam except as noted Skin no rashes or lesions noted Neuro CN's II-XII intact bilaterally Psych mental status grossly normal Assessment & Plan (1) Severe pre-eclampsia, : (2) Vaginal delivery: (3) Care and examination of lactating mother: PLAN: PPD 8 - readmit for severe preeclampsia Procardia 30 mg XL PO Blood pressures remain elevated/labile Dr. Mcintyre given verbal update and will be assuming management of patient.
--- NOTE | 2021-06-21 09:41 | NURSING ---
Dr. Mcintyre calls for update. Updated on VS through the night and lab work that was done since admission. Orders received for TSH, CMP, CBC, and a Maternal Echo. Dr. Mcintyre wants updated if patient's BP is >140/90. Also discussed that patient is very tearful and stressed about the situation. Dr. Mcintyre says to talk with the patient and see if she would be ok starting on Zoloft 25mg daily.
--- NOTE | 2021-06-21 09:46 | ECHOD_ITS ---
Reason For Study: POST PRE ECLAMPSIA Procedure This was a 2D Doppler, Color Flow transthoracic echocardiogram. The study was technically difficult. Exam performed portable in patient room. Left Ventricle Normal LV size. Left ventricular systolic function is normal. The estimated ejection fraction is 60 %. No evidence for diastolic dysfunction. No regional wall motion abnormalities noted. Right Ventricle Normal RV size. Normal systolic function. Atria Normal left atrium. Normal right atrium. No doppler evidence for ASD. Mitral Valve There is no mitral annular calcification. Normal mitral valve. Trivial eccentric mitral valve insufficiency. Tricuspid Valve Normal tricuspid valve. Mild eccentric tricuspid valve insufficiency. Right ventricular systolic pressure estimated to be 21 mmHg. Aortic Valve Trisinus/trileaflet aortic valve. Mild focal aortic valve calcification. Pulmonic Valve The pulmonic valve is not well visualized. Great Vessels Normal sized aortic root. Pericardium/Pleural No pericardial effusion. MMode/2D Measurements & Calculations LVIDd: 4.7 cm IVSd: 0.86 cm Ao root diam: 2.6 cm LVIDs: 3.7 cm LVPWd: 0.85 cm RVDd: 3.1 cm FS: 20.9 % LAV(MOD-sp4): 46.3 ml LA A4 area: 18.4 cm2 LA dimension(2D): 2.7 cm RA A4 area: 13.0 cm2 Doppler Measurements & Calculations MV E max nik: 61.9 cm/sec Lat Peak E' Nik: 12.2 cm/sec Med Peak E' Nik: 10.1 cm/sec E/E' lat: 5.1 E/E' med: 6.1 Ao V2 max: 134.3 cm/sec LV V1 max: 103.5 cm/sec TR max nik: 209.9 cm/sec Ao max P.2 mmHg LV V1 max P.3 mmHg TR max P.6 mmHg ECHO/Echo Complete Interpretation Summary The study was technically difficult. Left ventricular systolic function is normal. The estimated ejection fraction is 60 %. Trivial eccentric mitral valve insufficiency. Mild eccentric tricuspid valve insufficiency. Mild focal aortic valve calcification. Right ventricular systolic pressure estimated to be 21 mmHg. No evidence for diastolic dysfunction. Ordering Physician: Bakari Mcintyre Referring Physician: DAX PATEL Performed By: Alea Johnston, LILLY, RVT
[2021-06-21 11:10] LABS: Absolute Lymphocyte Count 1.47 X10^3/uL (0.83-4.51); Absolute Neutrophil Count 7.3 X10^3/uL (2.0-7.7); Basophil# 0.05 X10^3/uL; Basophil% 0.5 % (0-1); Eosinophil# 0.04 X10^3/uL; Eosinophils% 0.4 % (0-5); Hematocrit 50.9 % (37-47); Hemoglobin 17.2 g/dL (12.0-15.0); Lymphocyte # 1.47 X10^3/ul (0.83-4.51); Lymphocyte % 15.7 % (19-41); Mean Corp Hgb Conc 33.8 g/dL (32-36); Mean Corpuscular Hgb 30.9 pg (27.0-32.0); Mean Corpuscular Volume 91.4 fL (81-99); Mean Platelet Vol. 8.3 fl (6.2-12.0); Monocyte# 0.48 X10^3/uL; Monocyte% 5.1 % (0-10); NRBC Flagged by Analyzer 0 % (0-5); Neutrophil # 7.28 X10^3/uL (2.7-7.7); Platelet Count 382 K/mm3 (150-450); RBC Distribution Width CV 12.7 % (11.6-14.6); Red Blood Count 5.57 M/mm3 (4.2-5.4); White Blood Count 9.4 K/mm3 (4.4-11.0)
[2021-06-21 11:45] LABS: ALB/GLOB Ratio 0.8 RATIO (0.9-2.4); AST(SGOT) 17 U/L (15-37); Alanine Aminotransfer ALT/SGPT 31 U/L (13-56); Albumin, Serum 3.6 g/dL (3.2-5.0); Alkaline Phosphatase 112 U/L (45-117); Anion Gap 7 (5-15); BUN 9 mg/dL (7-18); BUN/Creat Ratio 14.2 RATIO (10-20); Calcium,Total 8.6 mg/dL (8.5-10.1); Chloride 108 mmol/L (98-107); Creatinine, Serum 0.63 mg/dL (0.55-1.02); EST Glomerular Filtration Rate 118 mL/min (>60); Est Glom Filt Rate - Afr Amer 142 mL/min (>60); Estimated Creatinine Clearance 132.91 ml/min; Globulin 4.8 g/dL (2.2-4.2); Glucose 102 mg/dL (74-106); Protein, Total 8.4 g/dL (6.4-8.2); Sodium Level 139 mmol/L (136-145); Thyroid Stim Hormone (TSH) 1.67 uIU/mL (0.358-3.74)
--- NOTE | 2021-06-21 13:34 | NURSING ---
Call placed to Dr. Leonora Mcintyre office. Asked the nurse to inform Dr. Mcintyre that patient's test results are in and to have her give me a call once she reviewed them.
--- NOTE | 2021-06-21 14:09 | NURSING ---
Dr. Leonora Mcintyre calls at this time. Updated on Patient's echocardiogram results, blood test results, and Pt's vital signs. States that she will get back with me about POC.
--- NOTE | 2021-06-21 15:10 | NURSING ---
Notified Charge nurse Ina Koenig RN of patient's BP's of over >160 systolic. Will notify
--- NOTE | 2021-06-21 15:15 | ED.RN ---
Called Dr. Mcintyre to update on patient's BP of 156/99, 164/104, and 161/102. Order received to give 10mg Procardia fast acting now and call back 20 minutes after dose with BP
--- NOTE | 2021-06-21 15:23 | NURSING ---
Called Pharmacy to send Procardia STAT
[2021-06-21] MEDS: NIFEdipine 10 MG Capsule PO (15:33)
--- NOTE | 2021-06-21 15:55 | NURSING ---
Called Dr. Mcintyre to update on 20 minutes BP of 157/93 after PO 10mg Procardia. Order received to give 20mg of Procardia now and to call get back with 20 minute BP.
[2021-06-21] MEDS: NIFEdipine 10 MG Capsule 20 MG PO (16:06)
--- NOTE | 2021-06-21 16:33 | NURSING ---
Dr. Mcintyre updated on BP of 143/82 20 minutes after the 20mg of Procardia. Dr. Mcintyre wants 60mg of Procardia XL given between [id number] with BP taken before administration and 1 hour afterwards.
[2021-06-21] MEDS: NIFEdipine 60 MG Tablet PO (17:20)
--- NOTE | 2021-06-21 19:04 | NURSING ---
Called Dr. Mcintyre to update on Patient's BP starting to trend upwards again. Dr. Mcintyre did not answer at this time and a voice mail was left for her to call unit.
--- NOTE | 2021-06-21 19:12 | NURSING ---
Dr. Mcintyre calls this nurse for update. Updated on recent elevated BP. Order received for 5mg IVP Hydralazine now.
[2021-06-21] MEDS: 0.9 % NaCl (Sterile) Posiflush 10 mL IV (19:22)
[2021-06-21] MEDS: hydrALAZINE 20 MG/ML Vial 5 MG IV (19:22)
--- NOTE | 2021-06-21 19:40 | NURSING ---
Report given to Shauna Valdes RN who will assume care at this time. Notified RN that Dr. Mcintyre will need updated on effectiveness of Hydralazine. It was discussed about starting her on PO hydralazine but did not want to until updated on BP after IV hydralazine was given. RUDY Valdes states that she will call Dr. Mcintyre and update her ob BP's.
--- NOTE | 2021-06-21 20:09 | NURSING ---
called for pt update. updated on BP trends after IV hydralazine. new orders for 10mg Po hydralazine to start now, then TID, and plan to continue with 60Mg procardia XL daily
[2021-06-21] MEDS: hydrALAZINE 10 MG Tablet PO (20:38)
[2021-06-22] VITALS (16 sets, daily range): BP systolic 118–138; BP diastolic 76–89; PULSE 62–112; RESP 14–18; TEMP 36.1–36.7; O2SAT 97–100
[2021-06-22] MEDS: hydrALAZINE 10 MG Tablet PO ×2 (05:16→14:02)
[2021-06-22] MEDS: NIFEdipine 60 MG Tablet PO (10:01)
[2021-06-22 12:50] LABS: Hematocrit 47.8 % (37-47); Hemoglobin 15.8 g/dL (12.0-15.0); Mean Corp Hgb Conc 33.1 g/dL (32-36); Mean Corpuscular Hgb 30.2 pg (27.0-32.0); Mean Corpuscular Volume 91.4 fL (81-99); Mean Platelet Vol. 8.5 fl (6.2-12.0); Platelet Count 399 K/mm3 (150-450); RBC Distribution Width CV 12.5 % (11.6-14.6); RBC Distribution Width SD 41.9 fl (35.1-43.9); Red Blood Count 5.23 M/mm3 (4.2-5.4); White Blood Count 6.8 K/mm3 (4.4-11.0)
[2021-06-22 13:02] LABS: Prothrombin Time (Protime)PT. 12.6 SECONDS (11.7-14.9)
[2021-06-22 13:03] LABS: AST(SGOT) 13 U/L (15-37); Alanine Aminotransfer ALT/SGPT 29 U/L (13-56); Creatinine, Serum 0.67 mg/dL (0.55-1.02); EST Glomerular Filtration Rate 110 mL/min (>60); Est Glom Filt Rate - Afr Amer 133 mL/min (>60); Estimated Creatinine Clearance 124.98 ml/min; Partial Thromboplast Time 26.7 Seconds (24.1-36.2); Uric Acid 4.1 mg/dL (2.6-6.0)
--- NOTE | 2021-06-22 14:09 | NURSING ---
lab values and Bp's called and reported to office nurse- waiting for return call
--- NOTE | 2021-06-22 16:43 | PN.OBGYN_ITS ---
Subjective Subjective Patient states that she is feeling much better. Denies any headache or blurry vision. Denies epigastric pain. Average lochia. Tolerating regular diet. Objective Data Objective Data Vital Signs: Vital Signs Temp Pulse Resp BP Pulse Ox 98.1 F 112 H 15 133/84 H 100 06/22/21 14:03 06/22/21 16:38 06/22/21 16:38 06/22/21 16:38 06/22/21 05:15 Oxygen Delivery Method Room Air Weight: 67.5 kg Body Mass Index (BMI) 22.6 Lab / Micro Data Result Diagrams: 06/22/21 12:30 06/22/21 12:30 Labs: Laboratory Results - last 24 hr 06/22/21 12:30: WBC 6.8, RBC 5.23, Hgb 15.8 H, Hct 47.8 H, MCV 91.4, MCH 30.2, MCHC 33.1, RDW Std Deviation 41.9, RDW Coeff of Winsome 12.5, Plt Count 399, MPV 8.5 06/22/21 12:30: PT 12.6, INR 1.0, APTT 26.7 06/22/21 12:30: Creatinine 0.67, Estim Creat Clear Calc 124.98, Est GFR (MDRD) A f Amer 133, Est GFR (MDRD) Non-Af 110, Uric Acid 4.1, AST 13 L, ALT 29 Micro: Microbiology 06/18/21 18:25 Nasal Secretion SARS-CoV-2 Antigen (Rapid) - Final Physical Exam Narrative Wake, alert, no acute distress. Extremities with trace edema. 2+ DTRs no clonus. Assessment & Plan (1) Severe pre-eclampsia, : PLAN: Blood pressures are now stable on current regimen of nifedipine and hydralazine. Will discharge home with close follow-up. Patient can monitor blood pressure at home and she is comfortable with this plan. Polycythemia is likely due to hemoconcentration. Hemoglobin and hematocrit are already improving towards normal today. Peripheral smear was normal. We will recheck at follow-up next week. Echocardiogram yesterday was within normal limits.
--- NOTE | 2021-06-22 16:44 | PCM.DC.SUM ---
Providers Date of Admission: 06/18/21 Primary Care Physician: Christin Auguste PA-C Reason For Visit: POST PRE-E Diagnosis Discharge Diagnosis (1) Severe pre-eclampsia, : Status: Acute Code(s): O14.15 - Severe pre-eclampsia, complicating the puerperium Medications at Discharge Home Medications [id number] 1 tab PO DAILY 06/13/21 calcium 1,000 mg PO DAILY 06/18/21 cholecalciferol (vitamin D3) [Vitamin D3] 50 mcg PO DAILY 06/18/21 omega-3 fatty acids 1,000 mg PO DAILY 06/18/21 hydralazine 5 mg PO TID #30 tab 06/20/21 nifedipine 60 mg PO DAILY #1 tab 06/22/21 Hospital Course Operations None Summary of Care Provided Hospital Course: Patient was readmitted with preeclampsia on 06/18/2021. She was placed on magnesium and given IV medications to help control her blood pressure. Her blood pressure was then low on the magnesium. When the magnesium was discontinued she did well for approximately 24 hours then her blood pressures began to spike again. She was then given Procardia to help control her blood pressures. Her blood pressures continue to be labile. An echocardiogram was ordered which was negative. Her preeclampsia labs remain normal throughout her hospital stay other than her hematocrit hemoglobin and hematocrit trended up. Peripheral smear was ordered which was normal. By hospital day 5 the polycythemia was improving and her blood pressures were stable on Procardia XL 60 mg daily and hydralazine 10 mg p.o. 3 times daily. She was discharged home with prescriptions and to follow-up next week. She was instructed to hold the hydralazine if her blood pressure was persistently low or taken extra dose if it was persistently high. Patient was comfortable with plan and had the ability to monitor blood pressures at home. was breast-feeding and doing well. Weight / BMI Weight Weight: 67.5 kg Body Mass Index (BMI) 22.6 ABG / Lab / Microbiology Data Result Diagrams: 06/22/21 12:30 06/22/21 12:30 Laboratory: Laboratory Results - last 24 hr 06/22/21 12:30: WBC 6.8, RBC 5.23, Hgb 15.8 H, Hct 47.8 H, MCV 91.4, MCH 30.2, MCHC 33.1, RDW Std Deviation 41.9, RDW Coeff of Winsome 12.5, Plt Count 399, MPV 8.5 06/22/21 12:30: PT 12.6, INR 1.0, APTT 26.7 06/22/21 12:30: Creatinine 0.67, Estim Creat Clear Calc 124.98, Est GFR (MDRD) Af Amer 133, Est GFR (MDRD) Non-Af 110, Uric Acid 4.1, AST 13 L, ALT 29 Microbiology: Microbiology 06/18/21 18:25 Nasal Secretion SARS-CoV-2 Antigen (Rapid) - Final D/C Instructions Discharge Diet: No restrictions May resume sexual activity in: 6-8 weeks Weight Bearing Status: Weight bearing as tolerated Additional Activity Instructions: - Pelvic rest for 6 weeks - Check blood pressure at home before medication and 1 hour after, and keep a blood pressure log - Check blood pressure if lightheaded or dizzy - Check blood pressure if severe headache Hold the hydralazine medication if your blood pressure is less than 125/70. Take an extra dose if your blood pressure is greater than 160/105 for 2 readings 15 minutes apart. Call the office if any questions or concerns. Follow-up next week or as needed. When: This week for a blood pressure check Meaningful Use Info Meaningful Use Diagnoses (Choose all that apply): None applicable Discharge Plan Admission Admit Date/Time: 06/18/21 18:15 Primary Reason for Your Visit: pre eclampsia Attending Provider: Aicha Payton Primary Care Provider: Christin Auguste Instructions Patient Instructions: Understanding Preeclampsia Discharge Orders/Prescriptions Prescriptions: New hydralazine 10 mg tablet 5 mg PO TID Qty: 30 RF: 0 nifedipine 60 mg Tablet Extended Release 24hr 60 mg PO DAILY Qty: 1 RF: 0 Continued [id number] 1 mg Tablet 1 tab PO DAILY RF: 0 calcium 500 mg Tablet 1,000 mg PO DAILY RF: 0 omega-3 fatty acids Capsule 1,000 mg PO DAILY RF: 0 cholecalciferol (vitamin D3) [Vitamin D3] 50 mcg (2,000 unit) Tablet 50 mcg PO DAILY RF: 0 Discontinued labetalol 100 mg tablet 200 mg PO BID RF: 0 Referrals / Follow Up: Christin Auguste PAJacquelineC [Primary Care Provider] - Disposition Disposition (needs filled in before D/C Order can be placed): Home, Self Care
== END 2021-06-22 17:20 | disposition home or self-care (01) | DRG 776 ==
LOC: WPOUT 18:19 → WP 18:19
PROVIDERS: Obstetrics & Gynecology; Admitting Provider Advanced Practice Midwife; PCP Family Medicine; Visit Provider Advanced Practice Midwife
DX: O14.15 Severe pre-eclampsia, complicating the puerperium (principal); O99.13 Other diseases of the blood and blood-forming organs and certain disorders involving the immune mechanism complicating the puerperium; D75.1 Secondary polycythemia; O13.5 Gestational [pregnancy-induced] hypertension without significant proteinuria, complicating the puerperium; Z20.822 Contact with and (suspected) exposure to COVID-19; Z79.899 Other long term (current) drug therapy
CPT/HCPCS: 80053; 82565; 84443; 84450; 84460; 84550; 85025; 85027; 85610; 85730; 87426; 93306; J7120